=== PATIENT | female | born 1945 ===

== ENCOUNTER 2017-05-01 15:41 | Inpatient (IN) ==
--- NOTE | 2017-05-02 06:22 | History and Physical Update ---
History and Physical Update - History and Physical H&P was reviewed, the patient examined and there: are no changes in the patients condition since last H&P was completed.
[2017-05-02 08:04] LABS: Basophils % 0.4 % (0.0-0.8); Eosinophils # 0.2 10*3/uL (0.0-0.87); Eosinophils % 2.9 % (0.00-10.9); Hematocrit 27.9 VOL% (35.7-47.0); Hemoglobin 9.6 GM/DL (12.0-16.0); Immature Granulocytes % 0.3 %; Immature Granulocytes Absolute 0.02 #; Lymphocytes # 1.7 10*3/uL (1.4-4.0); Lymphocytes % 23.3 % (21.3-54.2); Mean Corpuscular HGB Conc 34.4 GM/DL (32-36); Mean Corpuscular Hemoglobin 32 PG (27-34); Mean Corpuscular Volume 92.4 FL (87-102); Mean Platelet Volume 9.4 FL (9.6-12.0); Monocytes # 1.1 10*3/uL (0.11-0.8); Monocytes % 15.2 % (1.7-12.7); Neutrophils # 4.1 10*3/uL (1.4-7.4); Neutrophils % 57.9 % (38.7-73.9); Platelet Count 274 T/CUMM (130-400); Red Blood Count 3.02 MC/CUMM (3.8-5.5); Red Cell Distribution Width 13.7 % (9.3-17.3); White Blood Count 7.2 T/CUMM (4-12)
--- NOTE | 2017-05-02 08:06 | EKG Report ---
Stationary ECG Study [facility] Test Date: 05/02/2017 8:03:58 AM Pat Name: FELICE DURHAM Department: Room: 627 Gender: F Clean Out Driller: JEWEL : 1945 Requested by: Louie Keating Order Number: [id number] Reading MD: ADRIANA VERMA Intervals [place] Rate: 68 P: 61 [place]: 167 QRS: -31 QRSD: 119 T: 25 QT: 395 QTc: 412 Interpretive Statements SINUS RHYTHM MILD LEFT AXIS DEVIATION LOW QRS VOLTAGE IN PRECORDIAL LEADS INCOMPLETE RIGHT BUNDLE BRANCH BLOCK MINIMAL VOLTAGE CRITERIA FOR LVH, CONSIDER NORMAL VARIANT DELAYED ANTERIOR R WAVE PROGRESSION POSSIBLE ANTERIOR MYOCARDIAL INFARCTION, PROBABLY OLD Electronically Signed On 05-02-17 11:47:07 CDT by ADRIANA VERMA [email or web address]
[2017-05-02 08:25] LABS: INR 1.1; PT Patient Result 11.3 SECS; Partial Thromboplastin Time 29.5 SECS (0-40)
--- NOTE | 2017-05-02 08:28 | XRay Report ---
Portable chest. Indication: Respiratory preoperative. Comparison: November 29, 2015. The heart is enlarged with left ventricular hypertrophy. The pulmonary vasculature is normal. The lung smith are clear. No pneumothorax or pleural effusion. Calcification within the left breast. Stable osseous structures. Impression: Stable cardiomegaly. No acute abnormality. PROCEDURE INTERPRETED AT [facility] DEPARTMENT OF RADIOLOGY Final Report Signed by: Dr. Isadora Cole
[2017-05-02 08:55] LABS: Albumin 2.9 G/DL (3.4-5.0); Bilirubin,Total 0.4 MG/DL (0.2-1.0); Calcium 8.6 MG/DL (8.5-10.1); Osmolality,Calculated 289.7 MOS/KG (273-304); Potassium 3.8 MMOL/L (3.5-5.1); Total Protein 6.5 G/DL (6.4-8.3)
[2017-05-02] MEDS ORDERED: BUPIVACAINE 0.5% /EPI 10 ML VIAL ONE (10:14)
[2017-05-02] MEDS ORDERED: LACTATED RINGERS 1,000 ML IV SCH (11:00)
[2017-05-02] MEDS ORDERED: HYDROmorphone 2 MG/1 ML VIAL IV PRN (11:42)
[2017-05-02] MEDS ORDERED: GLUCAGON 1 MG VIAL IM PRN (11:42)
[2017-05-02] MEDS ORDERED: ACETAMINOPHEN 325 MG TABLET PO PRN (11:42)
[2017-05-02] MEDS ORDERED: DEXTROSE 50% 25 GM/50 ML SYRINGE IV PRN (11:42)
--- NOTE | 2017-05-02 11:42 | Operative Note ---
Date of procedure: 05/02/17 Pre-op diagnosis: Necrotic abscess wound of the right abdominal wall Post-op diagnosis: same Procedure: Operative note: Preoperative diagnosis: Large necrotic wound on the right abdominal wall with abscess formation Postoperative diagnosis same Procedure: Excision of necrotic wound and drainage of abscess right anterior abdominal wall Surgeon Dr. Keating Anesthesia was general with local Brief history: 71-year-old female with a large wound on her right anterior abdominal wall. She says it started as a spider bite that had progressively gotten worse. They have been treated since March and this wound has now gotten extremely big big necrotic area on the anterior abdominal wall. There is drainage from the wound and would like to bring her in to try to excise this wound and get a good clean base for eventual closure. Procedure: With patient in the supine position prepped and draped in sterile fashion timeout and antibiotics were approaches area of this wound which is oval-shaped in nature with necrotic tissue in the very top part of it with purulent drainage with some degree of pressure expressed out. We cultured the purulent drainage aerobically and anaerobically with swabs. Once we did that we now measured the wound is 14 cm x 7 cm at this by size at this time. Took a 10 blade and did an elliptical incision around the necrotic area of the wound itself to get down to good clean tissue. Once we are through the skin subtenons tissue identical to cautery and went underneath this wound to excise the entire necrotic wound bed out at this time. Once it was out I then used electrocautery to controlling bleeding. I then took some scissors and cleaned with fatty tissue in the base and trimmed up a couple of necrotic edges of the skin to get a good clean base present. Once I had that pretty well completed at this point time I washed irrigated with saline solution. The wound looks clean at this time but I am still afraid close it due to the amount of necrotic and draining tissue that we had earlier. At this point it now measures 16 x 9 x 2 cm in size. At this point I elected to go ahead and packed with the Dakin' s wet gauze along with fluffs over the top of that and take her to the recovery room. Estimated blood loss was 25 cc Sponge count correct 2 Drains none Complications none Condition stable satisfactory Anesthesia: GETA, local (0.25% Marcaine with epinephrine mixed [id number] 1% Xylocaine plain) Surgeon / Physician: Louie Keating Estimated blood loss: other (25 cc) Specimens: other (Tissue and swabs for cultures and tissue for pathology) Condition: stable Disposition: floor Results - Labs CBC & BMP: 05/02/17 07:59 05/02/17 07:59 Discharge Plan - Discharge Medications No Action Simvastatin 20 mg PO BEDTIME Aspirin [Ecotrin] 81 mg PO BEDTIME amLODIPine 5 mg PO DAILY NovoLIN 70/30 35 units SUBCUT DAILY W/BREAKFAST Saxagliptin HCl [Onglyza] 5 mg PO DAILY Omeprazole 1 tablet PO DAILY Losartan 100 mg PO DAILY Insulin NPH Hum/Reg Insulin Hm [NovoLIN 70/30] 30 units SUBCUT DAILY W/SUPPER - Follow Up or Referral - Forms/Instructions
--- NOTE | 2017-05-02 11:49 | Anesthesia Post-Op ---
Anesthesia Post OP - Post Ansesthetic Evaluation Patient seen in post op: Yes Resp: within normal limits CV: within normal limits Mental: within normal limits Temp: within normal limits [id number]-Qt-[id number]: within normal limits Nausea and Vomiting: within normal limits Pain: within normal limits
[2017-05-02] MEDS ORDERED: PROPOFOL 200 MG/20 ML VIAL IV ONE (11:52)
[2017-05-02] MEDS ORDERED: SEVOFLURANE 1 UNIT/15 MINUTE INH ONE (11:52)
[2017-05-02] MEDS ORDERED: MIDAZOLAM 2 MG/2 ML VIAL ONE (11:53)
[2017-05-02] MEDS ORDERED: fentaNYL 100 MCG/2 ML VIAL ONE (11:53)
[2017-05-02] MEDS ORDERED: HYDROmorphone 2 MG/1 ML VIAL ONE (11:53)
[2017-05-02] MEDS ORDERED: CHLORHEXIDINE 4% SOLN 118 ML BOTTLE TOP ONE (15:01)
[2017-05-02] MEDS: SODIUM CHLORIDE 0.9% 1,000 ML IV SCH (15:05)
[2017-05-02] MEDS: INSULIN REGULAR 100 UNIT/ML SUBCUT SCH ×2 (17:11→21:57)
[2017-05-02] MEDS: INSULIN NPH/REGULAR 70/30 100 UNIT/ML SUBCUT SCH (17:11)
[2017-05-02] MEDS: ceFAZolin 2,000 MG in PREMIX 1 EACH IV SCH (17:12)
[2017-05-02] MEDS: SIMVASTATIN 20 MG TABLET PO SCH (20:38)
[2017-05-02] MEDS: ASPIRIN EC 81 MG TABLET PO SCH (20:38)
[2017-05-02] MEDS: ENOXAPARIN 40 MG/0.4 ML SYRINGE SUBCUT SCH (20:38)
[2017-05-03] MEDS: SODIUM CHLORIDE 0.9% 1,000 ML IV SCH ×2 (02:27→12:39)
[2017-05-03] MEDS: ceFAZolin 2,000 MG in PREMIX 1 EACH IV SCH ×3 (02:30→17:08)
[2017-05-03 06:13] LABS: Basophils % 0.5 % (0.0-0.8); Eosinophils # 0.1 10*3/uL (0.0-0.87); Eosinophils % 2.3 % (0.00-10.9); Hematocrit 24.2 VOL% (35.7-47.0); Hemoglobin 8.2 GM/DL (12.0-16.0); Immature Granulocytes % 0.5 %; Immature Granulocytes Absolute 0.03 #; Lymphocytes # 1.6 10*3/uL (1.4-4.0); Lymphocytes % 26.6 % (21.3-54.2); Mean Corpuscular HGB Conc 33.9 GM/DL (32-36); Mean Corpuscular Hemoglobin 32 PG (27-34); Mean Corpuscular Volume 93.4 FL (87-102); Mean Platelet Volume 9.8 FL (9.6-12.0); Monocytes # 0.7 10*3/uL (0.11-0.8); Monocytes % 12.2 % (1.7-12.7); Neutrophils # 3.5 10*3/uL (1.4-7.4); Neutrophils % 57.9 % (38.7-73.9); Platelet Count 240 T/CUMM (130-400); Red Blood Count 2.59 MC/CUMM (3.8-5.5); Red Cell Distribution Width 13.8 % (9.3-17.3); White Blood Count 6.1 T/CUMM (4-12)
[2017-05-03 06:42] LABS: Calcium 7.7 MG/DL (8.5-10.1); Osmolality,Calculated 288.7 MOS/KG (273-304); Potassium 3.8 MMOL/L (3.5-5.1)
[2017-05-03] MEDS: INSULIN REGULAR 100 UNIT/ML SUBCUT SCH ×4 (07:36→20:54)
[2017-05-03] MEDS ORDERED: INSULIN ISOPHANE SUBCUT SCH (08:00)
[2017-05-03] MEDS ORDERED: INSULIN REGULAR SUBCUT SCH (08:00)
[2017-05-03] MEDS: LOSARTAN 50 MG TABLET PO SCH (08:40)
[2017-05-03] MEDS: PANTOPRAZOLE 40 MG TABLET PO SCH (08:41)
[2017-05-03] MEDS: sitaGLIPtin 100 MG TABLET PO SCH (08:41)
[2017-05-03] MEDS: amLODIPine 5 MG TABLET PO SCH (08:41)
[2017-05-03] MEDS ORDERED: OMEPRAZOLE PO SCH (09:00)
--- NOTE | 2017-05-03 09:36 | General Surgery Progress Note ---
Assessment and Plan - Time spent with patient Time spent with patient: Less than 30 minutes (1) Abscess of abdominal wall Status: Acute Assessment and plan: 05/03/2017 0930 hrs. Patient is awake and alert and stable at this time. She has some moderate discomfort but in general he looks good. Wound care is beginning. I have had a discussion with her about the possibility of taking a back surgery tomorrow closing this wound over drain and she understands the risk complications about the possibility of reinfection. She prefer that since it would simplify the care of the wound for her when she leaves here. Hematocrit is low at 24 which I do not understand because she came in and hematocrit of 27. Creatinine is normal so it is unusual to see one this low in this patient. She may need further workup on that anemia if it had been done somewhere else before. Will schedule for surgery tomorrow Current Visit: Yes Subjective Patient reports: Present: no new complaints, pain is less, afebrile Exam - Constitutional Vitals: Period Temp Pulse Resp BP Sys/Campbell Pulse Ox Last 24 Hr 97.6 F-98.3 F 60-75 8-18 97-156/56-87 93-99 General appearance: mild distress - Head Head exam: Present: normal inspection - ENT ENT exam: Present: normal exam - Neck Neck exam: Present: normal inspection - Respiratory Respiratory exam: Present: rales - Cardiovascular Cardiovascular exam: Present: RRR - GI/Abdominal GI/Abdominal exam: Present: normal bowel sounds, soft - Extremities Exam Extremities exam: Present: normal inspection - Back Exam Back exam: Present: normal inspection - Neurological Exam Neurological exam: Present: alert, oriented X3, CN II-XII intact - Skin Skin exam: Present: normal color, warm, dry Results - Labs CBC & BMP: 05/03/17 05:46 05/03/17 05:46 Lab Results: I have reviewed the past 24 hour labs Specialty Discharge - Follow Up or Referrals Follow up with: Louie Keating MD [Physician] -
[2017-05-03] MEDS: SODIUM HYPOCHLORITE 0.25% IRRIG 473 ML BOTTLE TOP SCH (09:46)
[2017-05-03] MEDS: CHLORHEXIDINE 4% SOLN 118 ML BOTTLE TOP SCH (09:46)
[2017-05-03 10:33] LABS: % Iron Saturation 19.1 % (18-50)
--- NOTE | 2017-05-03 14:29 | Pathology Report from [facility] ---
[facility] ACCESSION # : [id number] PATIENT NAME : Monisha Durham ORDERING DR : JOSEPHINE VERONICA MD CLINICAL HX: Right abdomen abscess POST-OP DX: Same SPECIMEN INFO: #1 Polyp of abdominal wall #2 Abdominal wall tissue GROSS DESCRIPTION: #1 Received in formalin labeled with the patients name MONISHA DURHAM and #1 consists of a 0.8 x 0.5 x 0.5 cm story polyp. Sectioned and submitted in cassette #1.#2 Received in formalin labeled with the patients name MONISHA DURHAM and #2 consists of a fragment of debrided, ulcerated skin and subcutaneous tissue measuring 12.5 x 6.8 x 2.3 cm. A union contract representative section submitted in cassette #2. DIAGNOSIS FOR MONISHA DURHAM: #1 POLYP OF ABDOMINAL WALL: Polypoid seborrheic keratosis with underlying fibrosis.#2 ABDOMINAL WALL TISSUE: Ulceration, necrosis, suppuration/abscess. COLLECTED DATE: 05/02/2017 [facility] REPORT DATE: 05/03/2017 ELECTRONICALLY SIGNED BY: Brad Ratliff M.D. 05/03/2017 - 10:26:56 [facility]
[2017-05-03] MEDS: INSULIN NPH/REGULAR 70/30 100 UNIT/ML SUBCUT SCH (17:10)
[2017-05-03] MEDS: ENOXAPARIN 40 MG/0.4 ML SYRINGE SUBCUT SCH (20:11)
[2017-05-03] MEDS: ASPIRIN EC 81 MG TABLET PO SCH (20:12)
[2017-05-03] MEDS: SIMVASTATIN 20 MG TABLET PO SCH (20:12)
[2017-05-04] MEDS: ceFAZolin 2,000 MG in PREMIX 1 EACH IV SCH ×2 (02:58→12:01)
[2017-05-04] MEDS: SODIUM CHLORIDE 0.9% 1,000 ML IV SCH ×3 (02:58→21:12)
[2017-05-04 05:54] LABS: Basophils % 0.3 % (0.0-0.8); Eosinophils # 0.3 10*3/uL (0.0-0.87); Eosinophils % 4.3 % (0.00-10.9); Hematocrit 25.3 VOL% (35.7-47.0); Hemoglobin 8.5 GM/DL (12.0-16.0); Immature Granulocytes % 0.4 %; Immature Granulocytes Absolute 0.03 #; Lymphocytes # 1.5 10*3/uL (1.4-4.0); Lymphocytes % 21.1 % (21.3-54.2); Mean Corpuscular HGB Conc 33.6 GM/DL (32-36); Mean Corpuscular Hemoglobin 31 PG (27-34); Mean Platelet Volume 10.2 FL (9.6-12.0); Monocytes % 13.4 % (1.7-12.7); Neutrophils # 4.4 10*3/uL (1.4-7.4); Neutrophils % 60.5 % (38.7-73.9); Platelet Count 251 T/CUMM (130-400); Red Blood Count 2.72 MC/CUMM (3.8-5.5); Red Cell Distribution Width 13.9 % (9.3-17.3); White Blood Count 7.2 T/CUMM (4-12)
[2017-05-04] MEDS ORDERED: BUPIVACAINE 0.5% /EPI 10 ML VIAL ONE (06:28)
[2017-05-04 06:39] LABS: Alanine Aminotransferase 9 U/L (13-56); Albumin 2.4 G/DL (3.4-5.0); Alkaline Phosphatase 83 U/L (45-117); Aspartate Amino Transferase 6 U/L (0-37); Bilirubin,Total < 0.39 MG/DL (0.2-1.0); Blood Urea Nitrogen 14 MG/DL (7-18); Calcium 7.8 MG/DL (8.5-10.1); Glucose 77 MG/DL (74-106); Osmolality,Calculated 291.4 MOS/KG (273-304); Potassium 3.9 MMOL/L (3.5-5.1); Sodium 147 MMOL/L (136-145); Total Protein 5.5 G/DL (6.4-8.3)
[2017-05-04] MEDS ORDERED: PROPOFOL 200 MG/20 ML VIAL IV ONE (07:30)
[2017-05-04] MEDS ORDERED: LIDOCAINE 2% 5 ML VIAL ONE (07:30)
[2017-05-04] MEDS: INSULIN REGULAR 100 UNIT/ML SUBCUT SCH ×4 (07:30→21:07)
[2017-05-04] MEDS ORDERED: ONDANSETRON 4 MG/2 ML VIAL ONE ×2 (07:30→08:39)
--- NOTE | 2017-05-04 08:34 | Operative Note ---
Date of procedure: 05/04/17 Pre-op diagnosis: Open abdominal wound Post-op diagnosis: same Procedure: Operative note: Preoperative diagnosis: Open abdominal wound secondary to an abscess. Postoperative diagnosis: Same Procedure: Excisional debridement with delayed closure over drain of the open abdominal wound Surgeon Dr. Keating Animal Physiology Teacher Alicia Hinton, CUBING MACHINE TENDER ACNP Anesthesia general endotracheal with local Brief history: 71-year-old female came to us with a large ulcerated wound on her abdominal wall that had been treated for better than a month without any improvement. As she is related to a spider bite but he had been an infected wound was still continue to have some drainage present. This wound was not can be able to be easily managed without extensive debridement. She came in and had extensive debridement which left a large open abdominal wound on the anterior part of the right side of the abdominal wall. It was fairly clean after the debridement we treated and washed it but I felt like that she was not can be able to manage this wound very effectively due to its size. At that point with the wound looking as clean as it was elected to bring her back for delayed closure see if we can speed up the healing of this wound. Procedure: With patient in the supine position prepped and draped in sterile fashion timeout and antibiotics completed we approach this area of this abdominal wound. Pre-debridement measures 16 x 9.5 x 1.5 cm in size. There is lot of fatty tissue in there but he looks fairly clean at this point time. I did take scissors and debride little loose fatty tissue around after we washed irrigated with saline solution. I just cleaned up a few little areas but they looked okay with no deep infection seen. I did trim some of the skin in the upper part of the incision and did encounter what seemed to be a little drainage in the lateral upper part of the skin edge. This debrided away to good tissue at this time. We cleaned up these edges use electrocauterization controlling bleeding then washed irrigated again with saline solution. Have a wound that is 16.5 x 10 x 1.5 cm in size. At that point we began to a 2 layer a #7 Jaime -Granado in through a separate stab wound on the base of this wound. At that point I went ahead and begin to close with interrupted 2-0 nylon sutures in a vertical mattress fashion until it was completely closed. Certain areas we put a few samples in between for better closure at this time. With that pretty well completed and the wound closed that we put a bulky dressing on it using a silver type dressing at this time. Patient was taken to recovery room. Estimated blood loss 10 cc Sponge count correct 2 Drains one #7 Jaime-Granado Complications none Condition stable satisfactory Anesthesia: GETA, local (0.25% Marcaine with epinephrine mixed gtwl-dkr-zcat 1% Xylocaine plain) Surgeon / Physician: Louie Keating Animal Physiology Teacher: Alicia Hinton Specimens: none sent Condition: stable Disposition: floor Results - Labs CBC & BMP: 05/04/17 04:58 05/04/17 04:58 Discharge Plan - Discharge Medications No Action Simvastatin 20 mg PO BEDTIME Aspirin [Ecotrin] 81 mg PO BEDTIME amLODIPine [Norvasc] 5 mg PO DAILY Insulin Aspart Prot/Asp 70/30 [NovoLOG Mix 70/30] 35 unit SUBCUT DAILY W/ BREAKFAST Saxagliptin HCl [Onglyza] 5 mg PO DAILY Omeprazole 40 mg PO DAILY Losartan [Cozaar] 100 mg PO DAILY Insulin NPH Hum/Reg Insulin Hm [NovoLIN 70/30] 30 units SUBCUT DAILY W/SUPPER - Follow Up or Referral Follow Up: Louie Keating MD [Physician] - - Forms/Instructions
[2017-05-04] MEDS ORDERED: HYDROmorphone 2 MG/1 ML VIAL ONE (08:39)
[2017-05-04] MEDS ORDERED: SEVOFLURANE 1 UNIT/15 MINUTE INH ONE (08:40)
[2017-05-04] MEDS: HYDROmorphone 2 MG/1 ML VIAL IV PRN ×4 (08:40→08:55)
[2017-05-04] MEDS ORDERED: fentaNYL 100 MCG/2 ML VIAL ONE (08:41)
[2017-05-04] MEDS ORDERED: MIDAZOLAM 2 MG/2 ML VIAL ONE (08:41)
[2017-05-04] MEDS ORDERED: ONDANSETRON 4 MG/2 ML VIAL IV PRN (08:46)
[2017-05-04] MEDS: SODIUM HYPOCHLORITE 0.25% IRRIG 473 ML BOTTLE TOP SCH (09:00)
[2017-05-04] MEDS: CLINDAMYCIN INJ 600 MG in PREMIX 1 EACH IV SCH ×2 (09:00→14:44)
[2017-05-04] MEDS: CHLORHEXIDINE 4% SOLN 118 ML BOTTLE TOP SCH (09:00)
--- NOTE | 2017-05-04 09:13 | Anesthesia Post-Op ---
Anesthesia Post OP - Post Ansesthetic Evaluation Patient seen in post op: Yes Resp: within normal limits CV: within normal limits Mental: within normal limits Temp: within normal limits [id number]-[id number]: within normal limits Nausea and Vomiting: within normal limits Pain: within normal limits
[2017-05-04 11:09] LABS: Folate 11.9 NG/ML (5.4-24.0)
[2017-05-04] MEDS: LOSARTAN 50 MG TABLET PO SCH (11:59)
[2017-05-04] MEDS: sitaGLIPtin 100 MG TABLET PO SCH (11:59)
[2017-05-04] MEDS: amLODIPine 5 MG TABLET PO SCH (12:00)
[2017-05-04] MEDS: PANTOPRAZOLE 40 MG TABLET PO SCH (12:00)
[2017-05-04] MEDS ORDERED: ceFAZolin 2,000 MG in PREMIX 1 EACH IV SCH (14:24)
[2017-05-04] MEDS: INSULIN NPH/REGULAR 70/30 100 UNIT/ML SUBCUT SCH ×2 (19:04→19:09)
[2017-05-04] MEDS: LINEZOLID INJ 600 MG in PREMIX 1 EACH IV SCH (19:06)
[2017-05-04] MEDS: SIMVASTATIN 20 MG TABLET PO SCH (21:06)
[2017-05-04] MEDS: ASPIRIN EC 81 MG TABLET PO SCH (21:06)
[2017-05-04] MEDS: ENOXAPARIN 40 MG/0.4 ML SYRINGE SUBCUT SCH (21:07)
[2017-05-05] MEDS: SODIUM CHLORIDE 0.9% 1,000 ML IV SCH ×3 (03:32→16:38)
[2017-05-05] MEDS: LINEZOLID INJ 600 MG in PREMIX 1 EACH IV SCH ×2 (05:01→17:11)
[2017-05-05 05:16] LABS: Basophils % 0.4 % (0.0-0.8); Eosinophils # 0.3 10*3/uL (0.0-0.87); Eosinophils % 3.3 % (0.00-10.9); Hematocrit 24.1 VOL% (35.7-47.0); Hemoglobin 8.1 GM/DL (12.0-16.0); Immature Granulocytes % 0.4 %; Immature Granulocytes Absolute 0.03 #; Lymphocytes # 1.7 10*3/uL (1.4-4.0); Lymphocytes % 21.5 % (21.3-54.2); Mean Corpuscular HGB Conc 33.6 GM/DL (32-36); Mean Corpuscular Hemoglobin 32 PG (27-34); Mean Corpuscular Volume 94.1 FL (87-102); Mean Platelet Volume 10.2 FL (9.6-12.0); Monocytes # 1.3 10*3/uL (0.11-0.8); Neutrophils # 4.6 10*3/uL (1.4-7.4); Neutrophils % 58.4 % (38.7-73.9); Platelet Count 245 T/CUMM (130-400); Red Blood Count 2.56 MC/CUMM (3.8-5.5); Red Cell Distribution Width 13.7 % (9.3-17.3); White Blood Count 7.8 T/CUMM (4-12)
[2017-05-05 05:28] LABS: Calcium 7.9 MG/DL (8.5-10.1); Osmolality,Calculated 281.1 MOS/KG (273-304); Potassium 3.9 MMOL/L (3.5-5.1)
[2017-05-05 06:36] LABS: Anisocytosis 2+; Eosinophils 2 % (0-10); Lymphocytes 21 % (20-55); Platelet Estimate Normal; Segmented Neutrophils 61 % (50-85); Total Cells Counted 100
[2017-05-05 06:37] LABS: Macrocytosis 2+
[2017-05-05] MEDS: LOSARTAN 50 MG TABLET PO SCH (09:25)
[2017-05-05] MEDS: sitaGLIPtin 100 MG TABLET PO SCH (09:25)
[2017-05-05] MEDS: amLODIPine 5 MG TABLET PO SCH (09:25)
[2017-05-05] MEDS: PANTOPRAZOLE 40 MG TABLET PO SCH (09:26)
[2017-05-05] MEDS: INSULIN REGULAR 100 UNIT/ML SUBCUT SCH ×4 (09:26→20:36)
[2017-05-05] MEDS: CHLORHEXIDINE 4% SOLN 118 ML BOTTLE TOP SCH (16:00)
[2017-05-05] MEDS: SODIUM HYPOCHLORITE 0.25% IRRIG 473 ML BOTTLE TOP SCH (16:00)
[2017-05-05] MEDS: MUPIROCIN 2% OINT 22 GM TUBE TOP SCH (16:00)
[2017-05-05] MEDS: BACITRACIN OINT 0.9 GM PACK TOP SCH (16:00)
[2017-05-05] MEDS: INSULIN NPH/REGULAR 70/30 100 UNIT/ML SUBCUT SCH (17:14)
--- NOTE | 2017-05-05 18:27 | Event Note ---
General Surgery Progress Note Chief complaint This patient is a 71-year-old woman admitted with necrotizing abscess infection of the right lower abdominal wall treated with incision and drainage with excisional debridement on 05/02/2017 followed by delayed primary closure of wound on 05/04/[address] Keating Interval history No events overnight. Patient is on appropriate antibiotic coverage for culture results. She is tolerating her diet and her pain is well controlled. PAULA drain is serosanguineous. Physical exam Afebrile, normal vital signs Right lower abdominal wall wound is clean with no evidence of infection. No erythema. No drainage. PAULA drain is serosanguineous. Labs None new Imaging None new Assessment and plan Continue antibiotics and PAULA drain to bulb suction Monitor wound
[2017-05-05] MEDS: SIMVASTATIN 20 MG TABLET PO SCH (20:36)
[2017-05-05] MEDS: ENOXAPARIN 40 MG/0.4 ML SYRINGE SUBCUT SCH (20:36)
[2017-05-05] MEDS: ASPIRIN EC 81 MG TABLET PO SCH (20:36)
[2017-05-06] MEDS: SODIUM CHLORIDE 0.9% 1,000 ML IV SCH ×3 (02:00→21:08)
[2017-05-06] MEDS: LINEZOLID INJ 600 MG in PREMIX 1 EACH IV SCH ×2 (05:13→17:35)
[2017-05-06] MEDS: INSULIN REGULAR 100 UNIT/ML SUBCUT SCH ×4 (08:40→21:09)
[2017-05-06] MEDS: LOSARTAN 50 MG TABLET PO SCH (08:40)
[2017-05-06] MEDS: amLODIPine 5 MG TABLET PO SCH (08:41)
[2017-05-06] MEDS: PANTOPRAZOLE 40 MG TABLET PO SCH (08:41)
[2017-05-06] MEDS: sitaGLIPtin 100 MG TABLET PO SCH (08:44)
[2017-05-06] MEDS: MUPIROCIN 2% OINT 22 GM TUBE TOP SCH (11:30)
[2017-05-06] MEDS: BACITRACIN OINT 0.9 GM PACK TOP SCH (11:30)
[2017-05-06] MEDS: SODIUM HYPOCHLORITE 0.25% IRRIG 473 ML BOTTLE TOP SCH (11:30)
[2017-05-06] MEDS: CHLORHEXIDINE 4% SOLN 118 ML BOTTLE TOP SCH (11:30)
[2017-05-06] MEDS ORDERED: MAGNESIUM HYDROXIDE SUSP 30 ML UDCUP PO PRN (12:22)
--- NOTE | 2017-05-06 14:06 | Event Note ---
General Surgery Progress Note Chief complaint This patient is a 71-year-old woman admitted with necrotizing abscess infection of the right lower abdominal wall treated with incision and drainage with excisional debridement on 05/02/2017 followed by delayed primary closure of wound on 05/04/[address] Keating Interval history No events overnight. Patient is doing well overall. She is asking for some MiraLAX. Physical exam Afebrile, normal vital signs Right lower abdominal wall wound is clean with no evidence of infection. No erythema. No drainage. PAULA drain is serosanguineous. Labs None new Imaging None new Assessment and plan Continue antibiotics and PAULA drain to bulb suction Monitor wound
[2017-05-06] MEDS: INSULIN NPH/REGULAR 70/30 100 UNIT/ML SUBCUT SCH (17:35)
[2017-05-06] MEDS: ENOXAPARIN 40 MG/0.4 ML SYRINGE SUBCUT SCH (21:08)
[2017-05-06] MEDS: SIMVASTATIN 20 MG TABLET PO SCH (21:08)
[2017-05-06] MEDS: ASPIRIN EC 81 MG TABLET PO SCH (21:08)
[2017-05-07] MEDS: SODIUM CHLORIDE 0.9% 1,000 ML IV SCH ×2 (00:04→07:03)
[2017-05-07] MEDS: LINEZOLID INJ 600 MG in PREMIX 1 EACH IV SCH (05:33)
[2017-05-07] MEDS: INSULIN REGULAR 100 UNIT/ML SUBCUT SCH ×2 (07:11→11:45)
--- NOTE | 2017-05-07 07:55 | General Surgery Progress Note ---
Assessment and Plan - Time spent with patient Time spent with patient: Less than 30 minutes (1) Abscess of abdominal wall Status: Acute Assessment and plan: 05/03/2017 0930 hrs. Patient is awake and alert and stable at this time. She has some moderate discomfort but in general he looks good. Wound care is beginning. I have had a discussion with her about the possibility of taking a back surgery tomorrow closing this wound over drain and she understands the risk complications about the possibility of reinfection. She prefer that since it would simplify the care of the wound for her when she leaves here. Hematocrit is low at 24 which I do not understand because she came in and hematocrit of 27. Creatinine is normal so it is unusual to see one this low in this patient. She may need further workup on that anemia if it had been done somewhere else before. Will schedule for surgery tomorrow 05/07/2017 0800 hrs. Patient is doing well and remaining afebrile at this time the PAULA drainage has decreased only about 5 cc. This drainage is clear at this time. Patient's incision looks clean and dry with no sign of any erythematous changes or ischemic skin loss present. She is been tolerating her diet and diabetes are under good control at this time. Her cultures had 2 different organisms that are grown out and they are both sensitive to linezolid or the vancomycin. I would favor keep her on the linezolid at this time since we can do that p.o. if she can obtain the antibiotic. Will have [facility] consulted and see if they are willing to pay for that for at least another week course of this particular antibiotic. Wound care is simplified primarily just showering putting the Mepitel and Aquacel onto the wound bed at this time. We will try to get patient discharged today and pull the drain if we can get the lens away tab by mouth through [facility] at this time. Current Visit: Yes Subjective Patient reports: Present: no new complaints, feels better, tolerating a regular diet, afebrile Exam - Constitutional Vitals: Period Temp Pulse Resp BP Sys/Campbell Pulse Ox Last 24 Hr 97.9 F-98.9 F 69-85 18-20 128-150/56-89 90-96 General appearance: no acute distress - Head Head exam: Present: normal inspection - ENT ENT exam: Present: normal exam - Neck Neck exam: Present: normal inspection - Respiratory Respiratory exam: Present: clear to auscultation bilaterally - Cardiovascular Cardiovascular exam: Present: RRR - GI/Abdominal GI/Abdominal exam: Present: hypoactive bowel sounds, tenderness (About the incisional right side of the abdomen), soft, other (Incisions clean and dry without any swelling or erythematous changes present. Drainage is minimal) - Extremities Exam Extremities exam: Present: normal inspection - Back Exam Back exam: Present: normal inspection - Neurological Exam Neurological exam: Present: alert, oriented X3, CN II-XII intact - Skin Skin exam: Present: normal color, warm, dry Results - Labs CBC & BMP: 05/05/17 03:10 05/05/17 03:10 Lab Results: I have reviewed the past 24 hour labs Specialty Discharge - Follow Up or Referrals Follow up with: Louie Keating MD [Physician] -
[2017-05-07] MEDS: SODIUM HYPOCHLORITE 0.25% IRRIG 473 ML BOTTLE TOP SCH (08:03)
[2017-05-07] MEDS: sitaGLIPtin 100 MG TABLET PO SCH (08:08)
[2017-05-07] MEDS: PANTOPRAZOLE 40 MG TABLET PO SCH (08:08)
[2017-05-07] MEDS: amLODIPine 5 MG TABLET PO SCH (08:08)
[2017-05-07] MEDS: LOSARTAN 50 MG TABLET PO SCH (08:08)
[2017-05-07] MEDS: MUPIROCIN 2% OINT 22 GM TUBE TOP SCH (08:09)
[2017-05-07] MEDS: CHLORHEXIDINE 4% SOLN 118 ML BOTTLE TOP SCH (08:09)
[2017-05-07] MEDS: BACITRACIN OINT 0.9 GM PACK TOP SCH (08:10)
[2017-05-07] MEDS ORDERED: LINEZOLID 600 MG TABLET PO SCH (09:00)
--- NOTE | 2017-05-07 09:58 | Discharge Summary ---
Hospital Course - Hospital Course Hospital Course: Discharge summary: Discharge diagnosis: 1. Infected necrotic wound right anterior abdominal wall 2. Diabetes mellitus insulin-dependent Procedure: 1. Excisional debridement of infected wound of the right abdominal wall. 2. Delayed closure of wound of the right abdominal wall Surgeon Dr. Keating Brief summary: 71-year-old female who is referred up from [facility] because of a large wound on the right abdominal wall. She thinks it occurred with a insect bite we do not know whether this is related to her insulin shots either at this time. She was seen about a month ago with this wound and they have been treated and is just enlarged significantly on the anterior abdominal wall with a large granulating necrotic area on the anterior abdominal wall. At that point we put her in through IV antibiotics like to take her to surgery where we did a wide excision of this area to clean it up and get it completely removed. This seemed to be more of a superficial type wound because of fatty tissue underneath looked clean did not seem to have any deep infection present at this time. At this point we will start some wound care. Because of the clean nature of the wound bed and the fact is going be very difficult for her to take care of a large wound I like to take her back to surgery and do a delayed closure of this wound. We put a drain in and she has tolerated this fairly well the drainage has decreased dramatically. Her cultures did grow out 2 different organisms and they are only sensitive to the vancomycin and the Zyvox. I elected to put her on the Zyvox and since we get worried the [facility] would be willing to get it for for at least another week I think it be reasonable to keep her on that for the next week and allow the wound to get better and see how it is going to respond to this treatment at this time. We can follow her up again couple weeks continue insert wound care so that she can continue to see this heel. Hopefully we can get her beyond this infected. To some healing tissue to simplify the care. - Time spent with patient Time with patient DS: Less than 30 minutes Diagnosis - Discharge Diagnosis (1) Abscess of abdominal wall Status: Chronic (2) Type 2 diabetes mellitus Status: Chronic Specialty Discharge - Follow Up or Referrals Follow up with: Louie Keating MD [Physician] - 2 Weeks - Speciality Discharge Instructions Surgery Instructions: 1. Must do wound care once a day but may need twice a day if gets hot and sweaty. 2. May shower. 3. No heavy lifting or straining. 4. Use the abdominal binder primarily went up and about though not have to wear it to sleep in. Discharge Plan - Discharge Data Disposition: Disch To Home/Self Care Condition at Discharge: Stable Discharge Diet: diabetic diet Activity: increase activity as tolerated, no lifting, no prolonged standing, other (No straining) Hygiene: may shower Weight Bearing at Discharge: full weight bearing Driving: not until seen by doctor Contact your physician if you experience:: fever over 101, Redness or swelling, Bleeding, pain uncontrolled by pain medications Wound / Dressing Care Instructions: Wound care abdominal wound daily or twice a day should become hot sweaty. 1. Shower using Hibiclens to the wound. 2. Cover the wound with first Mepitel then Aquacel Ag gauze. 3. Cover with fluffs and ABDs - Discharge Medications New Chlorhexidine 4% Soln [Hibiclens] 1 applic TOP DAILY #1 bottle HYDROcodone/ACETAMIN 7.5-325 [[place] 7.5-325] 1 tablet PO Q6H PRN #20 tablet PRN Reason: Pain Moderate (4-7) Acetaminophen Tab [Tylenol Tab] 650 mg PO Q6H PRN tablet PRN Reason: Pain Mild (1-3) Linezolid Tab [Zyvox Tab] 600 mg PO Q12HR #14 tablet Continue Simvastatin 20 mg PO BEDTIME Aspirin [Ecotrin] 81 mg PO BEDTIME amLODIPine [Norvasc] 5 mg PO DAILY Insulin Aspart Prot/Asp 70/30 [NovoLOG Mix 70/30] 35 unit SUBCUT DAILY W/ BREAKFAST Saxagliptin HCl [Onglyza] 5 mg PO DAILY Omeprazole 40 mg PO DAILY Losartan [Cozaar] 100 mg PO DAILY Insulin NPH Hum/Reg Insulin Hm [NovoLIN 70/30] 30 units SUBCUT DAILY W/SUPPER - Follow Up or Referral Follow Up: Louie Keating MD [Physician] - - Forms/Instructions Exam - Constitutional Vitals: Period Temp Pulse Resp BP Sys/Campbell Pulse Ox Last 24 Hr 97.9 F-98.9 F 69-85 18-20 128-150/56-89 90-96 General appearance: no acute distress - Head Head exam: Present: normal inspection - ENT ENT exam: Present: normal exam - Neck Neck exam: Present: normal inspection - Respiratory Respiratory exam: Present: rales - Cardiovascular Cardiovascular exam: Present: regular rate and rhythm - GI/Abdominal GI/Abdominal exam: Present: hypoactive bowel sounds, soft, other (Wound right abdominal wall that appears to be clean with no sign of any ischemic changes or erythematous changes present.). Absent: tenderness - Extremities Exam Extremities exam: Present: normal inspection - Back Exam Back exam: Present: normal inspection - Neurological Exam Neurological exam: Present: alert, oriented X3, CN II-XII intact - Psychiatric Psychiatric exam: Present: normal affect, normal mood - Skin Skin exam: Present: normal color, warm, dry Discharge Results Labs on day of discharge: Labs from last 24 hours 05/07/17 05/06/17 05/06/17 06:54 20:35 15:41 POC Glucose 144 H 177 H 186 H 05/06/17 05/06/17 15:40 12:01 POC Glucose < 20 L* 160 H DS: Provider Date of admission: 05/02/17 11:42 Primary care physician: Mikal Ibarra MD Attending physician on admission: Louie Keating MD Consults: 05/02/17 11:42 Consult to Wound Care - [place] [CONS] Routine Reason for Wound Care: Wound Care Management Consult Comment: Large abdominal wound 05/02/17 14:31 Consult to Pastoral Services [CONS] Routine Comment: Pastoral Screen: Request Angular J[employer] Developer Visit Pastoral Screen Source of Request: Patient 05/03/17 09:38 Consult to Anesthesiology [CONS] Routine Consulting Provider: Reason for Anesthesiology: Pre-op Clearance 05/04/17 08:25 Consult to Case Mgmt/Social Srvs [CONS] Routine Reason for Case Mgmt/Social Srvs: Discharge Planning Consult Comment: Home health for wound care 05/07/17 07:56 Consult to Case Mgmt/Social Srvs [CONS] Routine Reason for Case Mgmt/Social Srvs: Discharge Planning Consult Comment: See if [facility] can get the [place] for another week for the patient Discharging clinician: Louie Keating MD Expected date of discharge: 05/07/17
[2017-05-07 11:13] VITALS: BP 141/75
== END 2017-05-07 13:56 | disposition home or self-care (01) | DRG 571 ==
LOC: N.SDSINP → N.3E 05-02 12:44
PROVIDERS: ADMIT Specialist; ATTEND Specialist

== ENCOUNTER 2017-05-17 15:09 | Inpatient (IN) ==
[2017-05-17] MEDS ORDERED: ALUMINUM/MAGNES/SIMETH MAX STR 30 ML UDCUP PO PRN (15:19)
[2017-05-17] MEDS ORDERED: HYDROmorphone 2 MG/1 ML VIAL IV PRN (15:19)
[2017-05-17] MEDS ORDERED: GLUCAGON 1 MG VIAL IM PRN (15:19)
[2017-05-17] MEDS ORDERED: ONDANSETRON 4 MG/2 ML VIAL IV PRN (15:19)
[2017-05-17] MEDS ORDERED: DEXTROSE 50% 25 GM/50 ML SYRINGE IV PRN (15:19)
[2017-05-17] MEDS ORDERED: ACETAMINOPHEN 325 MG TABLET PO PRN ×2 (15:19→18:31)
[2017-05-17] MEDS: SODIUM CHLORIDE 0.45% 1,000 ML IV SCH (17:10)
--- NOTE | 2017-05-17 17:35 | XRay Report ---
Exam: XR chest 2V Indication: Preop Comparison study: Prior chest radiograph 05/02/2017 Findings: Similar mild prominence of the cardiac silhouette is noted. There is also similar mild diffuse interstitial prominence, which may represent scarring changes. The heart, mediastinum and bony structures are stable from prior. There is no focal consolidation, pneumothorax or pleural effusion identified. Impression: No acute cardiopulmonary process. No significant change from prior PROCEDURE INTERPRETED AT [facility] DEPARTMENT OF RADIOLOGY Final Report Signed by: Jesus Lazar
[2017-05-17] MEDS: PIPERACILLIN/TAZOBACTAM 3,375 MG in SODIUM CHLORIDE 0.9% 100 ML IV SCH (17:42)
[2017-05-17] MEDS: INSULIN REGULAR 100 UNIT/ML SUBCUT SCH ×2 (17:44→21:53)
[2017-05-17 17:55] LABS: Basophils % 0.3 % (0.0-0.8); Eosinophils # 0.2 10*3/uL (0.0-0.87); Eosinophils % 1.7 % (0.00-10.9); Hematocrit 26.2 VOL% (35.7-47.0); Hemoglobin 8.8 GM/DL (12.0-16.0); Immature Granulocytes % 0.5 %; Immature Granulocytes Absolute 0.05 #; Lymphocytes # 1.8 10*3/uL (1.4-4.0); Lymphocytes % 19.4 % (21.3-54.2); Mean Corpuscular HGB Conc 33.6 GM/DL (32-36); Mean Corpuscular Hemoglobin 31 PG (27-34); Mean Corpuscular Volume 92.3 FL (87-102); Mean Platelet Volume 9.6 FL (9.6-12.0); Monocytes # 1.8 10*3/uL (0.11-0.8); Monocytes % 19.3 % (1.7-12.7); Neutrophils # 5.4 10*3/uL (1.4-7.4); Neutrophils % 58.8 % (38.7-73.9); Platelet Count 236 T/CUMM (130-400); Red Blood Count 2.84 MC/CUMM (3.8-5.5); Red Cell Distribution Width 13.7 % (9.3-17.3); White Blood Count 9.2 T/CUMM (4-12)
--- NOTE | 2017-05-17 18:04 | General Surg History&Physical ---
Assessment and Plan - Time spent with patient Time spent with patient: Greater than 30 minutes (1) Abscess of abdominal wall Status: Chronic Assessment and plan: Impression: New abscess left abdominal wall. Plan: Excisional debridement with antibiotics and cultures Current Visit: No (2) Type 2 diabetes mellitus Status: Chronic Assessment and plan: Impression: Type 2 diabetes. Plan: Medical management. Current Visit: No (3) Wound abscess Status: Acute Assessment and plan: Impression: Wound of the right abdominal wall secondary to an abscess status post excision and delayed closure. Current Visit: Yes History of Present Illness Chief complaint: Diabetic patient with a new ulcer abscess left abdominal wall History of present illness: Ms. Collado is a 71 year old female female diabetic who had undergone excisional debridement of an abscess of the right abdominal wall with a delayed closure. She was scheduled to come back next week because of this incision to remove the sutures at that time. She apparently been doing well with that but then described that a day or 2 after leaving the hospital she began to develop a little sore on the left abdominal wall. That has ulcerated now to a large 4 cm x 4 cm ulcerated area on the left anterior abdominal wall area. This is unusual and suspicious at this point time and has an unusual appearance. I am concerned that this may represent a fungal infection of some sort of this abdominal wall area. I have elected to put her in so that we can remove this and debrided and get some cultures and find out exactly what we are dealing with here at this time. Home Medications Medication Instructions Recorded Confirmed Type Aspirin [Ecotrin] 81 mg PO BEDTIME 11/29/15 05/17/17 History Insulin Aspart Prot/Asp 70/30 35 unit SUBCUT DAILY W/BREAKFAST 11/29/15 History [NovoLOG Mix 70/30] Losartan [Cozaar] 100 mg PO DAILY 11/29/15 05/17/17 History Omeprazole 40 mg PO DAILY 11/29/15 05/17/17 History Saxagliptin HCl [Onglyza] 5 mg PO DAILY 11/29/15 05/17/17 History Simvastatin 20 mg PO BEDTIME 11/29/15 05/17/17 History amLODIPine [Norvasc] 5 mg PO DAILY 11/29/15 05/17/17 History Insulin NPH Hum/Reg Insulin Hm 30 units SUBCUT DAILY W/SUPPER 05/02/17 05/17/17 History [NovoLIN 70/30] Acetaminophen Tab [Tylenol Tab] 650 mg PO Q6H PRN tablet 05/07/17 05/17/17 Rx Chlorhexidine 4% Soln [Hibiclens] 1 applic TOP DAILY #1 bottle 05/07/17 Rx HYDROcodone/ACETAMIN 7.5-325 1 tablet PO Q6H PRN #20 tablet 05/07/17 05/17/17 Rx [[place] 7.5-325] Linezolid Tab [Zyvox Tab] 600 mg PO Q12HR #14 tablet 05/07/17 05/17/17 Rx Sulfameth/Trimeth 800-160 Tab 1 tablet PO BID 05/17/17 05/17/17 History [Bactrim DS Tab] Allergies Allergy/AdvReac Type Severity Reaction Status Date / Time [place] Allergy Severe ITCHING Verified 05/04/17 08:36 Medical,Surgical,& Family Hx - Medical History Cardio: History of: Hypertension Neurology: No history of: Seizures HEENT: History of: Eye Problem (COD COS) Endocrine: History of: Diabetes Mellitus (IDDM), Diabetes Mellitus (NIDDM) Rheumatology: History of;: Rheumatoid Arthritis Respiratory: History of: Pneumonia Gastrointestinal: History of: GERD Other: History of: MRSA - Surgical History HEENT Surgeries: Surgical HX of: Eye Surgery (CODCOS) Abdominal Surgeries: Surgical HX of: Cholecystectomy, Colonoscopy Comment Only: Abdominal Surgery (DEBRIDEMENT OF ABDOMEN 05/02/17) Reproductive Surgeries: Surgical HX of;: Section (X2), Hysterectomy, Tubal Ligation Orthopedic Surgeries: Surgical HX of;: Orthopedic Surgery (L KNEE SCOPE) - Family History Family History: Reports;: Family Cancer (DAUGHTER), Family Diabetes (DAD), Family Heart Disease (MOM), Family Hypertension (MOM), Family Stroke (MOM) - Social History Smoking Status: Former smoker Frequency of Alcohol Use: None Type of Drug Use: None Exam - Constitutional Vitals: Period Temp Pulse Resp BP Sys/Campbell Pulse Ox Last 24 Hr 98.2 F 74 18 147/77 93 General appearance: mild distress - Head Head exam: Present: normal inspection - ENT ENT exam: Present: normal exam - Neck Neck exam: Present: normal inspection - Respiratory Respiratory exam: Present: clear to auscultation bilaterally, rales - Cardiovascular Cardiovascular exam: Present: RRR - GI/Abdominal GI/Abdominal exam: Present: normal bowel sounds, soft, other (Incision on the right anterior abdominal wall that extends to the flank area with sutures in place. No sign of any swelling or infection in this area. Left abdominal wall though has a 4 cm x 4 cm circular ulcerated area with chronic granulating tissue and some drainage present in this area.) - Extremities Exam Extremities exam: Present: normal inspection - Back Exam Back exam: Present: normal inspection - Neurological Exam Neurological exam: Present: alert, oriented X3, CN II-XII intact - Skin Skin exam: Present: normal color, warm, dry 12 point system: reviewed and no additional remarkable complaints except as stated Quality Measures - VTE Contraindication to Pharmacological VTE Prophylaxis: High Risk of Bleeding Results - Labs CBC & BMP: 05/17/17 16:43 Lab Results: I have reviewed the past 24 hour labs
[2017-05-17 18:09] LABS: Albumin 3.1 G/DL (3.4-5.0); Bilirubin,Total 0.7 MG/DL (0.2-1.0); Calcium 8.4 MG/DL (8.5-10.1); Osmolality,Calculated 283.1 MOS/KG (273-304); Potassium 3.8 MMOL/L (3.5-5.1); Total Protein 6.7 G/DL (6.4-8.3)
[2017-05-17 18:15] LABS: INR 1.1; PT Patient Result 11.4 SECS; Partial Thromboplastin Time 30.3 SECS (0-40)
[2017-05-17 21:20] LABS: Lymphocytes 23 % (20-55); Metamyelocytes 1 %; Segmented Neutrophils 64 % (50-85); Total Cells Counted 100
[2017-05-17 21:21] LABS: Hypochromasia Slight; Platelet Estimate Normal
[2017-05-17] MEDS: INSULIN ASPART PROTAMINE/ASPART 70/30 100 UNIT/ML SUBCUT SCH (21:26)
[2017-05-17] MEDS: LINEZOLID 600 MG TABLET PO SCH (21:26)
[2017-05-17] MEDS: DOCUSATE SODIUM 100 MG CAPSULE PO SCH (21:26)
[2017-05-17] MEDS: ASPIRIN EC 81 MG TABLET PO SCH (21:27)
[2017-05-17] MEDS: SULFAMETHOX/TRIMETHOPRIM 800-160 MG TABLET PO SCH (21:27)
[2017-05-17] MEDS: SIMVASTATIN 20 MG TABLET PO SCH (21:27)
[2017-05-18] MEDS: PIPERACILLIN/TAZOBACTAM 3,375 MG in SODIUM CHLORIDE 0.9% 100 ML IV SCH ×4 (00:50→23:52)
[2017-05-18] MEDS: SODIUM CHLORIDE 0.45% 1,000 ML IV SCH ×3 (00:51→16:36)
[2017-05-18] MEDS ORDERED: KETOROLAC 30 MG/1 ML VIAL ONE (07:05)
[2017-05-18] MEDS ORDERED: PHENYLEPHRINE 1 MG/10 ML SYRINGE IV ONE (07:05)
[2017-05-18] MEDS ORDERED: ONDANSETRON 4 MG/2 ML VIAL ONE (07:05)
[2017-05-18] MEDS ORDERED: DEXAMETHASONE 4 MG/1 ML VIAL ONE (07:05)
[2017-05-18] MEDS ORDERED: PROPOFOL 200 MG/20 ML VIAL IV ONE (07:05)
[2017-05-18] MEDS ORDERED: LIDOCAINE 1% 5 ML VIAL ONE (07:05)
[2017-05-18] MEDS ORDERED: HYDROmorphone 2 MG/1 ML VIAL IV PRN ×2 (08:00→08:21)
[2017-05-18] MEDS ORDERED: BISACODYL 5 MG TABLET PO PRN (08:00)
[2017-05-18] MEDS: INSULIN ASPART PROTAMINE/ASPART 70/30 100 UNIT/ML SUBCUT SCH ×2 (08:00→17:12)
[2017-05-18] MEDS ORDERED: ONDANSETRON 4 MG/2 ML VIAL IV PRN ×2 (08:00→08:21)
--- NOTE | 2017-05-18 08:00 | Operative Note ---
Date of procedure: 05/18/17 Pre-op diagnosis: Ulcerated wound of the left abdominal wall Post-op diagnosis: same Procedure: Operative note: Preoperative diagnosis: Raised ulcerated wound of the anterior abdominal wall left side Postoperative diagnosis: Same Procedure: Wide excision of ulcerated lesion left abdominal wall with primary closure Surgeon Dr. Keating Security Operations Analyst Alicia Hinton, MANAGER SAP ACNP Anesthesia general with local Brief history: 71-year-old female who is recovering from a large necrotic type of wound on the right abdominal wall requiring excision and then we went back and did a delayed closure because the cultures were no growth at the time. She is healed this went up fairly nicely and was eventually coming back to have the stitches removed first of the week. [facility] she had a new lesion around it ulcerated lesion on the left abdominal wall. This looked unusual and it was raised with granulating tissue and some purulence in this area. Did not fit the typical pattern that she normally see an abscess home. At this point we were concerned about what we are dealing with that we are to go ahead and excise this find out what we are dealing with at this time. There was concern that we had a fungal infection of the skin that we needed to further define at this point. Procedure: With patient in the supine position prepped and draped in a sterile fashion timeout and antibiotics completed we approach this area of the wound on the left abdominal wall that is about the level of the umbilicus. At that point we did a measurement of the wound itself measures 2.8 x 2.5 cm in size. At that point I then took a knife and began to take some wedges out of the center of this wound to send tissue for fungal cultures and then to send some tissue for regular cultures as well as swabs for regular cultures aerobically and anaerobically. Once that was completed and we had a local anesthetic in place I took another clean knife blade I did elliptical incision around the the ulcer itself going to the skin and subcutaneous tissue removing this mass intact for pathology to see check. There was no deep tissue infection at this point once we excised at the bat bottom tissue was all clean no sign of any infection present. This seem to be all superficial into the wound bed and in the skin at this time. At that point we use electrocauterization controlling bleeding. We now have a post debridement wound that is 5.5 x 3.8 x 0.9 cm in size. Once that was completed we evaluated the wound bed itself and everything looking pretty clean and knowing that the previous wound has done well and had no growth we elected to go ahead and see if we could close this over at this time and then see what happens with her cultures. At that point we then laid 1/4 inch Trang in the wound bed begin to close the skin vertical mattress fashion with 2-0 nylon. Once that was closed and dressings were applied and the patient was taken recovery room. Estimated blood loss 10 cc Sponge count correct 2 Drains quarter-inch Dille Complications none Condition stable satisfactory Anesthesia: GETA, local (0.25% Marcaine with epinephrine mixed [id number] 1% Xylocaine plain) Surgeon / Physician: Louie Keating Security Operations Analyst: Alicia Hinton Estimated blood loss: other (10 cc) Specimens: other (Tissue for pathology and culture and fungal cultures) Condition: stable Disposition: floor Results - Labs CBC & BMP: 05/17/17 16:43 05/17/17 16:42 Discharge Plan - Discharge Medications No Action Simvastatin 20 mg PO BEDTIME Aspirin [Ecotrin] 81 mg PO BEDTIME amLODIPine [Norvasc] 5 mg PO DAILY Insulin Aspart Prot/Asp 70/30 [NovoLOG Mix 70/30] 35 unit SUBCUT DAILY W/ BREAKFAST Saxagliptin HCl [Onglyza] 5 mg PO DAILY Omeprazole 40 mg PO DAILY Losartan [Cozaar] 100 mg PO DAILY Insulin NPH Hum/Reg Insulin Hm [NovoLIN 70/30] 30 units SUBCUT DAILY W/SUPPER Chlorhexidine 4% Soln [Hibiclens] 1 applic TOP DAILY #1 bottle HYDROcodone/ACETAMIN 7.5-325 [[place] 7.5-325] 1 tablet PO Q6H PRN #20 tablet PRN Reason: Pain Moderate (4-7) Sulfameth/Trimeth 800-160 Tab [Bactrim DS Tab] 1 tablet PO BID Acetaminophen Tab [Tylenol Tab] 650 mg PO Q6H PRN tablet PRN Reason: Pain Mild (1-3) Linezolid Tab [Zyvox Tab] 600 mg PO Q12HR #14 tablet - Follow Up or Referral - Forms/Instructions
--- NOTE | 2017-05-18 08:12 | Anesthesia Post-Op ---
Anesthesia Post OP - Post Ansesthetic Evaluation Patient seen in post op: Yes Resp: within normal limits CV: within normal limits Mental: within normal limits Temp: within normal limits [id number]: within normal limits Nausea and Vomiting: within normal limits Pain: within normal limits
[2017-05-18] MEDS ORDERED: SEVOFLURANE 1 UNIT/15 MINUTE INH ONE (08:14)
[2017-05-18] MEDS ORDERED: MIDAZOLAM 2 MG/2 ML VIAL ONE (08:15)
[2017-05-18] MEDS ORDERED: fentaNYL 100 MCG/2 ML VIAL ONE (08:15)
[2017-05-18] MEDS ORDERED: SODIUM CHLORIDE 0.9% 500 ML IV ONE (08:15)
[2017-05-18] MEDS ORDERED: SODIUM CHLORIDE 0.9% 500 ML IV SCH (08:30)
[2017-05-18] MEDS ORDERED: NON-FORMULARY MEDICATION (Omeprazole [Omeprazole] 40 MG) PO SCH (09:00)
[2017-05-18] MEDS: INSULIN REGULAR 100 UNIT/ML SUBCUT SCH ×4 (10:00→21:35)
[2017-05-18] MEDS: amLODIPine 5 MG TABLET PO SCH (10:02)
[2017-05-18] MEDS: LOSARTAN 50 MG TABLET PO SCH (10:02)
[2017-05-18] MEDS: DOCUSATE SODIUM 100 MG CAPSULE PO SCH ×2 (10:03→21:26)
[2017-05-18] MEDS: LINEZOLID 600 MG TABLET PO SCH ×2 (10:03→21:27)
[2017-05-18] MEDS: sitaGLIPtin 25 MG TABLET PO SCH (10:03)
[2017-05-18] MEDS: SULFAMETHOX/TRIMETHOPRIM 800-160 MG TABLET PO SCH ×2 (10:03→21:26)
[2017-05-18] MEDS: PANTOPRAZOLE 40 MG TABLET PO SCH (10:03)
[2017-05-18] MEDS: CHLORHEXIDINE 4% SOLN 118 ML BOTTLE TOP SCH (10:57)
[2017-05-18] MEDS: ceFAZolin 2,000 MG in PREMIX 1 EACH IV SCH ×2 (15:05→21:28)
[2017-05-18] MEDS: ASPIRIN EC 81 MG TABLET PO SCH (21:26)
[2017-05-18] MEDS: SIMVASTATIN 20 MG TABLET PO SCH (21:26)
[2017-05-19 06:14] LABS: Basophils % 0.2 % (0.0-0.8); Eosinophils % 0.4 % (0.00-10.9); Hematocrit 21.8 VOL% (35.7-47.0); Hemoglobin 7.5 GM/DL (12.0-16.0); Immature Granulocytes % 0.7 %; Immature Granulocytes Absolute 0.07 #; Lymphocytes # 2.1 10*3/uL (1.4-4.0); Lymphocytes % 20.4 % (21.3-54.2); Mean Corpuscular HGB Conc 34.4 GM/DL (32-36); Mean Corpuscular Hemoglobin 31 PG (27-34); Mean Corpuscular Volume 91.2 FL (87-102); Mean Platelet Volume 10.1 FL (9.6-12.0); Monocytes # 1.7 10*3/uL (0.11-0.8); Monocytes % 16.9 % (1.7-12.7); NRBC # 0.02 10*3/uL; Neutrophils # 6.2 10*3/uL (1.4-7.4); Neutrophils % 61.4 % (38.7-73.9); Platelet Count 194 T/CUMM (130-400); Red Blood Count 2.39 MC/CUMM (3.8-5.5); Red Cell Distribution Width 13.7 % (9.3-17.3); White Blood Count 10.1 T/CUMM (4-12)
[2017-05-19 06:40] LABS: Hypochromasia Slight; Lymphocytes 19 % (20-55); Segmented Neutrophils 67 % (50-85); Total Cells Counted 100
[2017-05-19 06:41] LABS: Microcytosis Slight; Ovalocytes Slight; Platelet Estimate Adequate
[2017-05-19 06:42] LABS: Calcium 7.8 MG/DL (8.5-10.1); Osmolality,Calculated 283.3 MOS/KG (273-304); Potassium 3.8 MMOL/L (3.5-5.1)
[2017-05-19] MEDS: SULFAMETHOX/TRIMETHOPRIM 800-160 MG TABLET PO SCH (09:26)
[2017-05-19] MEDS: PIPERACILLIN/TAZOBACTAM 3,375 MG in SODIUM CHLORIDE 0.9% 100 ML IV SCH ×2 (09:26→15:55)
[2017-05-19] MEDS: LOSARTAN 50 MG TABLET PO SCH (09:26)
[2017-05-19] MEDS: LINEZOLID 600 MG TABLET PO SCH ×2 (09:26→21:11)
[2017-05-19] MEDS: sitaGLIPtin 25 MG TABLET PO SCH (09:26)
[2017-05-19] MEDS: PANTOPRAZOLE 40 MG TABLET PO SCH (09:26)
[2017-05-19] MEDS: DOCUSATE SODIUM 100 MG CAPSULE PO SCH ×2 (09:27→21:11)
[2017-05-19] MEDS: INSULIN REGULAR 100 UNIT/ML SUBCUT SCH ×4 (09:45→22:52)
[2017-05-19] MEDS: INSULIN ASPART PROTAMINE/ASPART 70/30 100 UNIT/ML SUBCUT SCH ×2 (09:45→16:36)
--- NOTE | 2017-05-19 10:15 | Event Note ---
Patient has no complaints. She has no abdominal pain. She is afebrile. She was anemic yesterday and her hematocrit is lower today. She appears to be asymptomatic but we will need to watch this.
[2017-05-19] MEDS: amLODIPine 5 MG TABLET PO SCH (12:00)
[2017-05-19] MEDS: FLUCONAZOLE 100 MG TABLET PO SCH (12:00)
[2017-05-19] MEDS: SODIUM CHLORIDE 0.45% 1,000 ML IV SCH ×2 (12:14→16:37)
[2017-05-19] MEDS: CHLORHEXIDINE 4% SOLN 118 ML BOTTLE TOP SCH (15:45)
[2017-05-19] MEDS: SIMVASTATIN 20 MG TABLET PO SCH (21:11)
[2017-05-19] MEDS: ASPIRIN EC 81 MG TABLET PO SCH (21:11)
[2017-05-20] MEDS: PIPERACILLIN/TAZOBACTAM 3,375 MG in SODIUM CHLORIDE 0.9% 100 ML IV SCH ×3 (00:20→15:23)
[2017-05-20 06:57] LABS: Basophils % 0.3 % (0.0-0.8); Eosinophils # 0.2 10*3/uL (0.0-0.87); Eosinophils % 2.7 % (0.00-10.9); Hematocrit 23.5 VOL% (35.7-47.0); Hemoglobin 7.8 GM/DL (12.0-16.0); Immature Granulocytes % 1.7 %; Immature Granulocytes Absolute 0.15 #; Lymphocytes # 2.5 10*3/uL (1.4-4.0); Lymphocytes % 27.4 % (21.3-54.2); Mean Corpuscular HGB Conc 33.2 GM/DL (32-36); Mean Corpuscular Hemoglobin 31 PG (27-34); Mean Corpuscular Volume 92.5 FL (87-102); Mean Platelet Volume 10.3 FL (9.6-12.0); Monocytes # 1.6 10*3/uL (0.11-0.8); Monocytes % 17.3 % (1.7-12.7); Neutrophils # 4.5 10*3/uL (1.4-7.4); Neutrophils % 50.6 % (38.7-73.9); Platelet Count 204 T/CUMM (130-400); Red Blood Count 2.54 MC/CUMM (3.8-5.5); Red Cell Distribution Width 14.2 % (9.3-17.3)
[2017-05-20 07:22] LABS: Eosinophils 2 % (0-10); Lymphocytes 30 % (20-55); Microcytosis Slight; Segmented Neutrophils 56 % (50-85); Total Cells Counted 100
[2017-05-20 07:23] LABS: Acanthocytes Few; Ovalocytes Slight
[2017-05-20 07:50] LABS: Hypochromasia Slight
[2017-05-20 07:51] LABS: Platelet Estimate Normal
[2017-05-20] MEDS: INSULIN REGULAR 100 UNIT/ML SUBCUT SCH ×4 (08:06→20:59)
[2017-05-20] MEDS: DOCUSATE SODIUM 100 MG CAPSULE PO SCH ×2 (08:51→20:59)
[2017-05-20] MEDS: amLODIPine 5 MG TABLET PO SCH (08:51)
[2017-05-20] MEDS: PANTOPRAZOLE 40 MG TABLET PO SCH (08:51)
[2017-05-20] MEDS: INSULIN ASPART PROTAMINE/ASPART 70/30 100 UNIT/ML SUBCUT SCH ×2 (08:51→16:33)
[2017-05-20] MEDS: LINEZOLID 600 MG TABLET PO SCH ×2 (08:51→20:59)
[2017-05-20] MEDS: sitaGLIPtin 25 MG TABLET PO SCH (08:51)
[2017-05-20] MEDS: LOSARTAN 50 MG TABLET PO SCH (08:51)
[2017-05-20] MEDS: FLUCONAZOLE 100 MG TABLET PO SCH (08:52)
[2017-05-20] MEDS: CHLORHEXIDINE 4% SOLN 118 ML BOTTLE TOP SCH (13:30)
[2017-05-20] MEDS: SODIUM CHLORIDE 0.45% 1,000 ML IV SCH ×2 (15:25→21:01)
[2017-05-20] MEDS: SIMVASTATIN 20 MG TABLET PO SCH (20:59)
[2017-05-20] MEDS: ASPIRIN EC 81 MG TABLET PO SCH (20:59)
[2017-05-21] MEDS: PIPERACILLIN/TAZOBACTAM 3,375 MG in SODIUM CHLORIDE 0.9% 100 ML IV SCH ×2 (00:23→09:24)
[2017-05-21] MEDS: INSULIN REGULAR 100 UNIT/ML SUBCUT SCH ×2 (07:33→11:44)
[2017-05-21] MEDS: sitaGLIPtin 25 MG TABLET PO SCH (09:20)
[2017-05-21] MEDS: LINEZOLID 600 MG TABLET PO SCH (09:21)
[2017-05-21] MEDS: DOCUSATE SODIUM 100 MG CAPSULE PO SCH (09:21)
[2017-05-21] MEDS: amLODIPine 5 MG TABLET PO SCH (09:22)
[2017-05-21] MEDS: LOSARTAN 50 MG TABLET PO SCH (09:22)
[2017-05-21] MEDS: FLUCONAZOLE 100 MG TABLET PO SCH (09:22)
[2017-05-21] MEDS: PANTOPRAZOLE 40 MG TABLET PO SCH (09:22)
[2017-05-21] MEDS: CHLORHEXIDINE 4% SOLN 118 ML BOTTLE TOP SCH (09:23)
[2017-05-21] MEDS: INSULIN ASPART PROTAMINE/ASPART 70/30 100 UNIT/ML SUBCUT SCH (10:07)
--- NOTE | 2017-05-21 11:08 | Discharge Summary ---
Hospital Course - Hospital Course Hospital Course: Discharge summary: Discharge diagnosis: 1. Ulcerated wound of the left abdominal wall etiology unclear 2. Healed wound of the right abdominal wall secondary to an ulcerated lesion. 3. Diabetes insulin-dependent Procedure: Was excision of the ulcerated wound of the left abdominal wall with primary closure Surgeon Dr. Keating Fitter Tacker Dr. Carolina Felipe Brief summary 71-year-old female who was healing up from a large ulcerated necrotic wound of the right abdominal wall that had no growth on his cultures. She was doing well with this and it was slowly closing which comes to the office with a new ulcerated lesion of the left abdominal wall. This wound looks much different than the one on the right in that it looks almost like a blastomycosis wound with necrotic tissue and granulating base to it at this time. She was admitted and we took her to the operating room where we excised this wound and since the deep tissue showed no sign of infection I elected to lay a small drain in place and close it primarily based on the fact that the other wound was similar to this and had no growth on his cultures. She has done well with this so far and we have gone back and remove the final sutures on the right abdominal wall today. The wound on the left looks clean and dry no sign of infection minimal drainage present. Her culture again is no growth. They have been seeing some fungal elements and I still think we may be doing dealing with a blastomycosis. We are still waiting on the cultures on the fungus at this time. At discussed with Dr. Felipe and she is going to order her some Diflucan's and other medications while we are waiting for this to resolve. I will plan to keep the drain in for now get her back in a week to remove the drain. Probably another 2 weeks before we consider getting any stitches out. - Time spent with patient Time with patient DS: Greater than 30 minutes Diagnosis - Discharge Diagnosis (1) Abscess of abdominal wall Status: Chronic (2) Type 2 diabetes mellitus Status: Chronic (3) Wound abscess Status: Chronic Specialty Discharge - Follow Up or Referrals Follow up with: Louie Keating MD [Physician] - 1 Week (For removal of drain) Discharge Plan - Discharge Data Disposition: Disch To Home/Self Care Condition at Discharge: Stable Discharge Diet: diabetic diet Activity: increase activity as tolerated, no lifting, no prolonged standing, other (No straining) Hygiene: may shower Weight Bearing at Discharge: full weight bearing Driving: not until seen by doctor Contact your physician if you experience:: fever over 101, Redness or swelling, Bleeding, pain uncontrolled by pain medications Wound / Dressing Care Instructions: Wound care to the left abdominal wall wound daily. 1. Wash with Hibiclens--- may shower. 2. Apply first Mepitel to the incision and drain site. 3. Cover the Mepitel with the Aquacel Ag gauze. 4. Cover with a large Erik dressing. Wound care to the incision of the right abdominal wall. Daily. 1. Wash with Hibiclens--may shower. 2. Apply vitamin E oil to the incision. 3. Cover with a light ABD pad - Discharge Medications New Acetaminophen Tab [Tylenol Tab] 650 mg PO Q6H PRN tablet PRN Reason: Pain Mild (1-3) And/Or Fever Fluconazole Tab [Diflucan Tab] 100 mg PO DAILY #7 tablet Continue Simvastatin 20 mg PO BEDTIME Aspirin [Ecotrin] 81 mg PO BEDTIME amLODIPine [Norvasc] 5 mg PO DAILY Insulin Aspart Prot/Asp 70/30 [NovoLOG Mix 70/30] 35 unit SUBCUT DAILY W/ BREAKFAST Saxagliptin HCl [Onglyza] 5 mg PO DAILY Omeprazole 40 mg PO DAILY Losartan [Cozaar] 100 mg PO DAILY Insulin NPH Hum/Reg Insulin Hm [NovoLIN 70/30] 30 units SUBCUT DAILY W/SUPPER Chlorhexidine 4% Soln [Hibiclens] 1 applic TOP DAILY #1 bottle HYDROcodone/ACETAMIN 7.5-325 [[place] 7.5-325] 1 tablet PO Q6H PRN #20 tablet PRN Reason: Pain Moderate (4-7) Acetaminophen Tab [Tylenol Tab] 650 mg PO Q6H PRN tablet PRN Reason: Pain Mild (1-3) Linezolid Tab [Zyvox Tab] 600 mg PO Q12HR #14 tablet Discontinued Sulfameth/Trimeth 800-160 Tab [Bactrim DS Tab] 1 tablet PO BID - Follow Up or Referral - Forms/Instructions Forms: Acute Care Work/School Release Exam - Constitutional Vitals: Period Temp Pulse Resp BP Sys/Campbell Pulse Ox Last 24 Hr 97.6 F-98.2 F 71-79 18-20 130-171/68-76 94-97 General appearance: no acute distress - Head Head exam: Present: normal inspection - ENT ENT exam: Present: normal exam - Neck Neck exam: Present: normal inspection - Respiratory Respiratory exam: Present: clear to auscultation bilaterally - Cardiovascular Cardiovascular exam: Present: regular rate and rhythm - GI/Abdominal GI/Abdominal exam: Present: hypoactive bowel sounds, soft, other (Incision of the right abdominal wall is healed with no sign of any infection and the sutures were removed. The wound on the left is looking clean dry minimal drainage Trang drain is in place at this time.). Absent: tenderness - Extremities Exam Extremities exam: Present: normal inspection - Back Exam Back exam: Present: normal inspection - Neurological Exam Neurological exam: Present: alert, oriented X3, CN II-XII intact - Psychiatric Psychiatric exam: Present: normal affect, normal mood, anxious - Skin Skin exam: Present: normal color, warm, dry Discharge Results Procedures and tests throughout hospitalization: Pending Orders 05/18/17 08:00 Fungal Culture w/ Prep Routine Labs on day of discharge: Labs from last 24 hours 05/21/17 05/21/17 05/20/17 09:57 07:23 19:52 POC Glucose 164 H 86 122 H 05/20/17 05/20/17 16:31 11:44 POC Glucose 136 H 89 DS: Provider Date of admission: 05/17/17 15:46 Primary care physician: Mikal Ibarra MD Attending physician on admission: Louie Keating MD Consults: 05/17/17 15:26 Consult to Anesthesiology [CONS] Routine Consulting Provider: Reason for Anesthesiology: Pre-op Clearance 05/19/17 10:18 Consult to Physician [CONS] Routine Comment: moderate fungal elments seen on smear, abdomen Consulting Provider: Amanda Santamaria Consult to Specialist Group: Infectious Disease Person Notified: dr. ash Date Notified: 05/19/17 Time Notified: 10:30 Consult Notification Comment: phone orders given, will see patient sunday. Discharging clinician: Louie Keating MD Expected date of discharge: 05/21/17
--- NOTE | 2017-05-21 12:21 | Pathology Report from [facility] ---
[facility] ACCESSION # : [id number] PATIENT NAME : Monisha Collado ORDERING DR : JOSEPHINE VERONICA MD CLINICAL HX: Abdominal wall abscess POST-OP DX: Same SPECIMEN INFO: Abdominal wall abscess tissue GROSS DESCRIPTION: Received in formalin labeled MONISHA COLLADO is a 4.5 x 3.5 x 1.5 cm fragment of skin and subcutaneous tissue with a 2.5 x 1.8 cm wound noted on the skin surface. A customer relations representative section is submitted in one cassette. DIAGNOSIS FOR MONISHA COLLADO: ABDOMINAL WALL, BIOPSY: Squamous epithelium with ulceration and underlying suppurative inflammation, consistent with abscess. Special stains for acid fast bacilli and fungal organisms are negative. COLLECTED DATE: 05/18/2017 [facility] REPORT DATE: 05/21/2017 ELECTRONICALLY SIGNED BY: Mag Díaz M.D. 05/21/2017 - 11:21:51 MTDLalo
[2017-05-21 12:28] VITALS: BP 148/84
--- NOTE | 2017-05-21 13:29 | Infectious Disease Consult ---
Assessment and Plan (1) Abscess of abdominal wall Status: Chronic Assessment and plan: This is a recurring infection and it seems it is due to an unusual fungus. I called and spoke with the micro lab and this is not Leslie but instead an unusual fungal organism. Less likely blastomycosis however. Interestingly the histopathology revealed inflammation but special stains for fungus [and AFB] was negative. Recommendations: Discontinue all antibiotics and the fluconazole she is on and put the patient on voriconazole 200 mg p.o. twice a day. This is to be taken on an empty stomach. The lab has fungal cultures set up and I can see the patient in the office in 2 weeks to review her response to the voriconazole and follow-up on preliminary culture results. Thank you very much for the consult. Discussed with Dr. Keating. Current Visit: No (2) HTN (hypertension) Status: Chronic Current Visit: No (3) Type 2 diabetes mellitus Status: Chronic Current Visit: No History of Present Illness Chief complaint: Fungal elements from abdominal wound History of present illness: Ms. Collado is a 71 year old female who came in for I&D of an abscess to left side of her abdomen. She had a similar abscess just over a month ago which was drained the area debrided and then the wound closed. Patient has not had fever or other constitutional symptoms. In speaking with Dr. Keating it looked like sort of fleshy ulcerated area with a little bit of purulence when pressure was applied. He was suspicious for fungal infection such as blastomycosis. She has been on broad-spectrum antibiotics but lab called to say that they were unusual fungal elements noted and so I am asked to assist with management. Patient doing well today and is desirous of going home. Home Medications Medication Instructions Recorded Confirmed Type Aspirin [Ecotrin] 81 mg PO BEDTIME 11/29/15 05/17/17 History Insulin Aspart Prot/Asp 70/30 35 unit SUBCUT DAILY W/BREAKFAST 11/29/15 History [NovoLOG Mix 70/30] Losartan [Cozaar] 100 mg PO DAILY 11/29/15 05/17/17 History Omeprazole 40 mg PO DAILY 11/29/15 05/17/17 History Saxagliptin HCl [Onglyza] 5 mg PO DAILY 11/29/15 05/17/17 History Simvastatin 20 mg PO BEDTIME 11/29/15 05/17/17 History amLODIPine [Norvasc] 5 mg PO DAILY 11/29/15 05/17/17 History Insulin NPH Hum/Reg Insulin Hm 30 units SUBCUT DAILY W/SUPPER 05/02/17 05/17/17 History [NovoLIN 70/30] Acetaminophen Tab [Tylenol Tab] 650 mg PO Q6H PRN tablet 05/07/17 05/17/17 Rx Chlorhexidine 4% Soln [Hibiclens] 1 applic TOP DAILY #1 bottle 05/07/17 Rx HYDROcodone/ACETAMIN 7.5-325 1 tablet PO Q6H PRN #20 tablet 05/07/17 05/17/17 Rx [[place] 7.5-325] Linezolid Tab [Zyvox Tab] 600 mg PO Q12HR #14 tablet 05/07/17 05/17/17 Rx Acetaminophen Tab [Tylenol Tab] 650 mg PO Q6H PRN tablet 05/21/17 Rx Fluconazole Tab [Diflucan Tab] 100 mg PO DAILY #7 tablet 05/21/17 Rx Allergies Allergy/AdvReac Type Severity Reaction Status Date / Time [place] Allergy Severe ITCHING Verified 05/04/17 08:36 12 point system: reviewed and no additional remarkable complaints except as stated (Per HPI) Medical,Surgical,& Family Hx - Medical History Cardio: History of: Hypertension Neurology: No history of: Seizures HEENT: History of: Eye Problem (COD COS) Endocrine: History of: Diabetes Mellitus (IDDM), Diabetes Mellitus (NIDDM) Rheumatology: History of;: Rheumatoid Arthritis Respiratory: History of: Pneumonia Gastrointestinal: History of: GERD Other: History of: MRSA - Surgical History HEENT Surgeries: Surgical HX of: Eye Surgery (CODCOS) Abdominal Surgeries: Surgical HX of: Cholecystectomy, Colonoscopy Comment Only: Abdominal Surgery (DEBRIDEMENT OF ABDOMEN 05/02/17) Reproductive Surgeries: Surgical HX of;: Section (X2), Hysterectomy, Tubal Ligation Orthopedic Surgeries: Surgical HX of;: Orthopedic Surgery (L KNEE SCOPE) - Family History Family History: Reports;: Family Cancer (DAUGHTER), Family Diabetes (DAD), Family Heart Disease (MOM), Family Hypertension (MOM), Family Stroke (MOM) - Social History Smoking Status: Former smoker Frequency of Alcohol Use: None Type of Drug Use: None Infectious Disease Exam H&P - Constitutional Vitals: Vital Signs Temp Pulse Resp BP Pulse Ox 98.0 F 73 18 148/84 93 L 05/21/17 12:00 05/21/17 12:00 05/21/17 12:00 05/21/17 12:00 05/21/17 12:00 Intake and Output 05/20/17 05/21/17 05/21/17 23:59 07:59 15:59 Intake Total 300 / 300 100 / 100 Balance 300 / 300 100 / 100 Intake: IV 100 / 100 100 / 100 Zosyn 3,375 mg In Ns 100 100 / 100 100 / 100 ml @ 25 mls/hr IV Q8H JOHN Rx#:[id number] Oral 200 / 200 Other: Voiding Method Toilet # Voids 2 Weight 72.802 kg Patient Weight 05/21/17 23:59 Weight 72.802 kg Exam: General: Patient comfortable HEENT: Mucous membranes pink and moist, anicteric acyanotic, ADRIAN, no oropharyngeal exudates Neck: Supple, no thyroid gland enlargement, no lymphadenopathy Respiratory system: Breath sounds vesicular, no crepitations or wheezes Cardiovascular: Normal S1 and S2, no murmurs appreciated Abdomen: Close surgical wound noted to right side of abdomen which is healing, new wound to left side of abdomen also with sutures and [place] drain in situ but no active drainage. There is no surrounding induration or erythema. Normal bowel sounds, soft nontender throughout, no organomegaly or mass Genitourinary: No suprapubic pain or bladder distention Extremities: no edema Skin: No rash Reports - Labs CBC & BMP: 05/20/17 05:59 05/19/17 06:00 Labs: Laboratory Results - last 24 hr 05/20/17 05/20/17 05/21/17 16:31 19:52 07:23 POC Glucose 136 H 122 H 86 05/21/17 05/21/17 09:57 11:23 POC Glucose 164 H 119 H - Reports Microbiology: Microbiology 05/18/17 08:00 Abscess Culture - Final Abdomen - Abscess No Growth at 48 hours. Anaerobic Culture - Final No anaerobe isolated 05/18/17 08:00 Tissue Culture - Final Abdomen - Abscess No growth at 48 hours Gram Stain - Final Specialty Discharge - Follow Up or Referrals Follow up with: Louie Keating MD [Physician] - 05/28/17 10:30 am (For removal of drain)
[2017-05-21] MEDS ORDERED: VORICONAZOLE 200 MG TABLET PO SCH (21:00)
== END 2017-05-21 14:50 | disposition home or self-care (01) | DRG 571 ==
LOC: N.2E 15:46
PROVIDERS: ADMIT Specialist; ATTEND Specialist

== ENCOUNTER 2019-02-12 05:42 | Inpatient (IN) ==
[2019-01-23 13:55] LABS: Basophils % 0.3 % (0.0-0.8); Eosinophils # 0.1 10*3/uL (0.0-0.87); Eosinophils % 1.5 % (0.00-10.9); Hematocrit 29.6 VOL% (35.7-47.0); Hemoglobin 9.9 GM/DL (12.0-16.0); Immature Granulocytes % 0.4 %; Immature Granulocytes Absolute 0.03 #; Lymphocytes % 27.3 % (21.3-54.2); Mean Corpuscular HGB Conc 33.4 GM/DL (32-36); Mean Platelet Volume 9.8 FL (9.6-12.0); Monocytes % 12.2 % (1.7-12.7); Neutrophils % 58.3 % (38.7-73.9); Platelet Count 237 T/CUMM (130-400); Red Blood Count 3.15 MC/CUMM (3.8-5.5); White Blood Count 7.2 T/CUMM (4-12)
[2019-01-23 14:09] LABS: Apearance,Urine CLEAR (Clear); Bilirubin,Urine Negative (Negative); Blood, Urine Small mg/dL (Negative); Glucose,Urine (UA) 50 mg/dL (Negative); Ketones,Urine Negative (Negative); Nitrite,Urine Negative (Negative); Protein,Urine 100 MG/DL; RBC,Urine 1 /HPF (0-4); Urine Color Yellow (Yellow); Urine Specific Gravity 1.012 (1.001-1.035); Urine Urobilinogen < 2.0 EU/DL (0.2-1.0); WBC,Urine <1 /HPF (0-6)
[2019-01-23 14:14] LABS: Calcium 8.3 MG/DL (8.5-10.1); Osmolality,Calculated 278.7 MOS/KG (273-304)
[2019-02-12] MEDS ORDERED: SODIUM PHOSPHATE ENEMA 133 ML BOTTLE RECTAL ONE ×2 (05:55→06:58)
[2019-02-12] MEDS ORDERED: ALVIMOPAN 12 MG CAPSULE ONE (05:55)
[2019-02-12] MEDS ORDERED: cefTRIAXone 1,000 MG VIAL ONE (05:55)
[2019-02-12] MEDS ORDERED: ALVIMOPAN 12 MG CAPSULE PO ONE (06:00)
[2019-02-12] MEDS ORDERED: cefTRIAXone 1,000 MG in SYRINGE 1 EACH IV ONE (06:00)
[2019-02-12] MEDS ORDERED: INDOCYANINE GREEN 25 MG VIAL IV ONE (06:38)
[2019-02-12] MEDS ORDERED: FAMOTIDINE 20 MG TABLET PO ONE (06:43)
[2019-02-12] MEDS ORDERED: DIAZEPAM 5 MG TABLET PO ONE (06:43)
[2019-02-12] MEDS ORDERED: DIAZEPAM 5 MG TABLET ONE (06:53)
[2019-02-12] MEDS ORDERED: FAMOTIDINE 20 MG TABLET ONE (06:54)
[2019-02-12] MEDS ORDERED: LACTATED RINGERS 1,000 ML IV SCH ×2 (07:00→10:00)
[2019-02-12] MEDS ORDERED: ONDANSETRON 4 MG/2 ML VIAL IV ONE (09:55)
[2019-02-12] MEDS ORDERED: diphenhydrAMINE 50 MG/1 ML VIAL IV ONE (09:55)
[2019-02-12] MEDS ORDERED: NALOXONE 0.4 MG/ML VIAL IV PRN (09:55)
[2019-02-12] MEDS ORDERED: SODIUM CHLORIDE 0.9% 1,000 ML IV SCH (10:00)
[2019-02-12 10:37] LABS: Apearance,Urine CLEAR (Clear); Bilirubin,Urine Negative (Negative); Blood, Urine Small mg/dL (Negative); Glucose,Urine (UA) 50 mg/dL (Negative); Ketones,Urine Negative (Negative); Nitrite,Urine Negative (Negative); Protein,Urine 100 MG/DL; RBC,Urine 1 /HPF (0-4); Urine Color Straw (Yellow); Urine Specific Gravity 1.006 (1.001-1.035); Urine Urobilinogen < 2.0 EU/DL (0.2-1.0)
[2019-02-12] MEDS ORDERED: HYDROmorphone PCA 30 MG/30 ML SYRINGE IV ONE (10:57)
[2019-02-12] MEDS: HYDROmorphone PCA 30 MG/30 ML SYRINGE IV SCH (11:02)
[2019-02-12] MEDS ORDERED: ePHEDrine 50 MG/ML AMP ONE (11:03)
[2019-02-12] MEDS ORDERED: fentaNYL 100 MCG/2 ML VIAL ONE (11:03)
[2019-02-12] MEDS ORDERED: PROPOFOL 200 MG/20 ML VIAL IV ONE (11:03)
[2019-02-12] MEDS ORDERED: SEVOFLURANE 1 UNIT/15 MINUTE INH ONE (11:03)
[2019-02-12] MEDS ORDERED: DEXAMETHASONE 4 MG/1 ML VIAL ONE (11:04)
[2019-02-12] MEDS ORDERED: ROCURONIUM 100 MG/10 ML VIAL IV ONE (11:04)
[2019-02-12] MEDS ORDERED: ONDANSETRON 4 MG/2 ML VIAL ONE (11:04)
[2019-02-12] MEDS ORDERED: GLYCOPYRROLATE 0.4 MG/2 ML VIAL ONE (11:04)
[2019-02-12] MEDS ORDERED: LACTATED RINGERS 1,000 ML IV ONE (11:04)
[2019-02-12] MEDS ORDERED: NEOSTIGMINE 10 MG/10 ML VIAL ONE (11:04)
[2019-02-12] MEDS: SODIUM CHLORIDE 0.9% 1,000 ML IV SCH (12:31)
[2019-02-12] MEDS: INSULIN NPH/REGULAR 70/30 100 UNIT/ML SUBCUT SCH (17:38)
[2019-02-12] MEDS ORDERED: METOPROLOL TARTRATE 50 MG TABLET PO SCH (19:00)
[2019-02-12] MEDS: ATORVASTATIN 20 MG TABLET PO SCH (21:06)
[2019-02-12] MEDS: ALVIMOPAN 12 MG CAPSULE PO SCH (21:06)
[2019-02-12] MEDS: METOPROLOL TARTRATE 50 MG TABLET PO SCH (21:06)
[2019-02-13] MEDS: SODIUM CHLORIDE 0.9% 1,000 ML IV SCH ×2 (01:04→14:18)
[2019-02-13 05:43] LABS: Basophils % 0.1 % (0.0-0.8); Hematocrit 25.2 VOL% (35.7-47.0); Hemoglobin 8.3 GM/DL (12.0-16.0); Immature Granulocytes % 0.4 %; Immature Granulocytes Absolute 0.03 #; Lymphocytes # 1.3 10*3/uL (1.4-4.0); Lymphocytes % 17.7 % (21.3-54.2); Mean Corpuscular HGB Conc 32.9 GM/DL (32-36); Mean Corpuscular Volume 93.7 FL (87-102); Mean Platelet Volume 10.6 FL (9.6-12.0); Monocytes % 13.8 % (1.7-12.7); Platelet Count 197 T/CUMM (130-400); Red Blood Count 2.69 MC/CUMM (3.8-5.5); Red Cell Distribution Width 13.5 % (9.3-17.3); White Blood Count 7.5 T/CUMM (4-12)
[2019-02-13] MEDS: INSULIN NPH/REGULAR 70/30 100 UNIT/ML SUBCUT SCH ×2 (08:12→16:11)
[2019-02-13] MEDS: VITAMIN E 400 UNIT CAPSULE PO SCH (08:12)
[2019-02-13] MEDS: glipiZIDE 5 MG TABLET PO SCH (08:13)
[2019-02-13] MEDS: CHOLECALCIFEROL 1,000 UNIT TABLET PO SCH (08:13)
[2019-02-13] MEDS: MULTIVITAMIN (CENTRUM) TABLET PO SCH (08:13)
[2019-02-13] MEDS: ALVIMOPAN 12 MG CAPSULE PO SCH ×2 (08:13→22:16)
[2019-02-13] MEDS: sitaGLIPtin 25 MG TABLET PO SCH (08:13)
[2019-02-13] MEDS: CHLORTHALIDONE 25 MG TABLET PO SCH (08:13)
[2019-02-13] MEDS: LOSARTAN 50 MG TABLET PO SCH (08:14)
[2019-02-13] MEDS: amLODIPine 5 MG TABLET PO SCH (08:14)
[2019-02-13] MEDS: HYDROmorphone PCA 30 MG/30 ML SYRINGE IV SCH (09:33)
[2019-02-13] MEDS ORDERED: oxyCODONE/ACETAMINOPHEN 5-325 MG TABLET PO PRN (10:29)
[2019-02-13] MEDS: METOPROLOL TARTRATE 50 MG TABLET PO SCH (22:16)
[2019-02-13] MEDS: ATORVASTATIN 20 MG TABLET PO SCH (22:16)
[2019-02-14] MEDS: amLODIPine 5 MG TABLET PO SCH (09:24)
[2019-02-14] MEDS: SODIUM CHLORIDE 0.9% 1,000 ML IV SCH (09:24)
[2019-02-14] MEDS: LOSARTAN 50 MG TABLET PO SCH (09:25)
[2019-02-14] MEDS: glipiZIDE 5 MG TABLET PO SCH (09:25)
[2019-02-14] MEDS: MULTIVITAMIN (CENTRUM) TABLET PO SCH (09:25)
[2019-02-14] MEDS: VITAMIN E 400 UNIT CAPSULE PO SCH (09:25)
[2019-02-14] MEDS: CHLORTHALIDONE 25 MG TABLET PO SCH (09:25)
[2019-02-14] MEDS: CHOLECALCIFEROL 1,000 UNIT TABLET PO SCH (09:25)
[2019-02-14] MEDS: ALVIMOPAN 12 MG CAPSULE PO SCH (09:25)
[2019-02-14] MEDS: INSULIN NPH/REGULAR 70/30 100 UNIT/ML SUBCUT SCH (09:25)
[2019-02-14] MEDS: sitaGLIPtin 25 MG TABLET PO SCH (09:25)
[2019-02-14 11:45] VITALS: BP 150/81
== END 2019-02-14 11:35 | disposition home or self-care (01) | DRG 657 ==
LOC: N.SDSINP 05:42 → N.OR 05:42 → N.PREADM 05:42 → N.SDSINP 05:46 → N.5E 11:49
PROVIDERS: ADMIT Urology; ATTEND Urology